=== PATIENT | female | born 1935 | race Caucasian/White ===

== ENCOUNTER → 2016-11-04 | Outpatient (CLI) | payer MEDICARE, OTHER ==
[~2016-11-04] MED LIST: BALANCED SALT SOLN OPHT IRRIG 15 ML BTL ONE; EYEL1PAD EACH EYE; LACTCAP8 PO; LEVO.075 PO; LIFI1DRO LEFT EYE; LIPI10TA PO; MULTTAB67 PO; NORV2.5T PO; OPTI0.5D EACH EYE; PHENYLEPHRINE HCL 2.5% OPTH SOLN 2 ML BTL ONE; PROPARACAINE HCL 0.5% OPHT SOLN 15 ML BTL ONE; REST0.05 RIGHT EYE; TROPICAMIDE 1% OPHT SOLN 15 ML BTL ONE
== END ==
LOC: PHSDC 08:48
PROVIDERS: ATTEND Ophthalmology
DX: H26.492 Other secondary cataract, left eye (principal)

== ENCOUNTER → 2017-06-16 | Outpatient (CLI) | payer MEDICARE, OTHER ==
[~2017-06-16] MED LIST changes: -EYEL1PAD EACH EYE; +EYELPAD2 EACH EYE; +HYPROMELLOSE 0.3 % OPTH GEL 10 GM (0.34 FL OZ) TUBE ONE; -LIFI1DRO LEFT EYE; -OPTI0.5D EACH EYE; +OPTI0.5D3 EACH EYE
== END ==
LOC: PHSDC 08:05
PROVIDERS: ATTEND Ophthalmology
DX: H26.491 Other secondary cataract, right eye (principal)